=== PATIENT | male | born 1990 | race Caucasian/White ===

== ENCOUNTER 2022-12-16 10:01 | Day surgery (SDC) | payer BC ==
[~2022-12-16] VITALS: Ht 177.8 cm; Wt 64.2 kg
[2022-12-16] VITALS (16 sets, daily range): BP systolic 105–134; BP diastolic 67–96
--- NOTE | 2022-12-16 11:43 | NUR ---
Ambulatory in Day Surgery.Patient states colon prep results clear. History, Chart, Medications and Allergies reviewed before start of procedure.Lungs clear T/O to Auscultation. Patient confirms NPO status and agrees with scheduled surgery. Pre-Op teaching done. Pt verbalizes understanding. Patient States Post-Procedure ride home has been arranged.
--- NOTE | 2022-12-16 12:06 | NUR ---
12/16/22 1206 Thomas Frazier HISTORY, CHART, MEDICATIONS AND ALLERGIES REVIEWED BEFORE START OF PROCEDURE. PATIENT CONFIRMS NPO STATUS AND AGREES WITH SCHEDULED PROCEDURE. 3-LEAD EKG REVIEWED WITH PHYSICIAN PRIOR TO START OF PROCEDURE. MONITOR INTACT WITH CONTINUOUS PULSE OXIMETRY,CAPNOGRAPHY, 3-LEAD EKG, INTERMITTENT BP. SUPPLEMENTAL O2 TO BE TITRATED THROUGHOUT PROCEDURE TO MAINTAIN O2 SATURATION ABOVE 90%. PATIENT DETERMINED TO BE ASA APPROPRIATE FOR PROPOFOL SEDATION PRIOR TO START OF PROCEDURE BY
--- NOTE | 2022-12-16 14:44 | NUR ---
1400- PT READY FOR DC HOME. Discharged via wheelchair to private car for ride home. Discharge instructions reviewed with patient. Patient verbalizes understanding. Copy given to patient to take home.
== END 2022-12-16 13:00 | disposition home or self-care (01) ==
LOC: ORSCMMR 10:01 → ORD 11:15 → ORSCMMR 13:00 → ORSCSDS 12-22 12:15
PROVIDERS: Internal Medicine Gastroenterology
PROC: 0DJD8ZZ Inspection of Lower Intestinal Tract, Via Natural or Artificial Opening Endoscopic (ICD-10-PCS; principal; 2022-12-16 11:15)
DX: K62.5 Hemorrhage of anus and rectum (principal)
CPT/HCPCS: J2704; J7120